=== PATIENT | male | born 1940 | race Caucasian/White ===

== ENCOUNTER → 2020-09-24 | Outpatient (CLI) | payer OTHER ==
[~2020-09-24] MED LIST: AMBEREN; ASPIRIN EC81 M1; ASPIRIN EC81 M1 PO; BACTRIM DS TAB1 EACH PO; CYCLOBENZAPRINE10 MG PO; DOXYCYCLINE 10100 M1 PO; IBUPROFEN 400400 M1; IMODIUM; LISINOPRIL10 MG PO; MOBIC7.5 MG PO; NAPROSYN; POTASSIUM20 PO; TYLENOL EX-STR500 M2; [UNRECOGNIZED DRUG - OTHER] PO
== END ==
LOC: M.CT 09:21
PROVIDERS: ATTEND Internal Medicine Cardiovascular Disease
DX: Z13.6 Encounter for screening for cardiovascular disorders (principal)